=== PATIENT | male | born 1945 | race Caucasian/White ===

== ENCOUNTER → 2017-03-20 | Outpatient (CLI) | payer MEDICARE, BC | END | disposition home or self-care (01) | LOC: GMAB 14:30 | PROVIDERS: ATTEND Family Medicine | DX: Z12.5 Encounter for screening for malignant neoplasm of prostate (principal) ==

== ENCOUNTER → 2017-03-29 | Outpatient (CLI) | payer MEDICARE, BC ==
--- NOTE | 2017-03-31 11:57 | CT ---
EXAM DESCRIPTION: Chest w/o Contrast CLINICAL HISTORY: 71 years Male COUGH R05 COMPARISON: None TECHNIQUE: Noncontrast axial scans of the chest were obtained. Sagittal and coronal reformatted images were performed. The lack of intravenous contrast limits hilar and mediastinal evaluation. This exam was performed according to our departmental dose-optimization program, which includes automated exposure control, adjustment of the mA and/or kV according to patient size and/or use of iterative reconstruction technique. FINDINGS: The lungs are clear. There is no gross evidence of hilar or mediastinal mass or significant lymph node enlargement. A left subclavian transvenous pacemaker/defibrillator is present, along with atherosclerotic changes in the thoracic aorta and coronary artery calcifications. There is no evidence of thoracic aortic aneurysm, pleural effusion, or pneumothorax. Scattered slight degenerative changes are noted in the spine, along with anterior wedge compression deformity and lower endplate depression at T7, chronic in appearance. In the upper abdomen, there are noted vascular calcifications and cholecystectomy clips. A 1 cm ringlike calcification in the upper abdomen adjacent to the proximal duodenum could represent a duodenal diverticulum or potentially an old retained gallstone. Calcifications in the renal hilar areas are probably vascular. Probable small incidental cyst in the left kidney. There are metallic clips in the region of the gastroesophageal junction. IMPRESSION: No evidence of significant acute cardiopulmonary disease. Chronic appearing and incidental findings as described above. Electronically signed by: Jatin Sosa 03/31/2017 11:56 AM CHASSIS DRIVER
== END | disposition home or self-care (01) ==
LOC: CT 09:09
PROVIDERS: ATTEND Family Medicine
DX: R05 Cough (principal)

== ENCOUNTER → 2018-01-22 | Outpatient (CLI) | payer MEDICARE | LOC: GMAE 18:38 | PROVIDERS: ATTEND Family Medicine | DX: R10.13 Epigastric pain (principal) ==

== ENCOUNTER → 2018-01-23 | Outpatient (CLI) | payer MEDICARE, BC ==
--- NOTE | 2018-01-23 21:31 | CT ---
EXAM DESCRIPTION: Abdomen/Pelvis w/Contrast: Computed Tomography. CLINICAL HISTORY: EPIGASTRIC ABDOMINAL PAIN COMPARISON: None. TECHNIQUE: Spiral-axial scans at 5 x 5 mm intervals through the abdomen and pelvis, after nonionic IV contrast without oral contrast. Coronal and sagittal 2.0 mm reconstructions. Delayed scans, liver through the pelvis. Axial-spiral 5mm. No adverse reactions. Total Exam DLP: 496.52 mGy-cm. This exam was performed according to our departmental dose-optimization program which includes automated exposure control, adjustment of the mA and/or kV according to patient size and/or use of iterative reconstruction technique; to reduce radiation dose to as low as reasonably achievable (ALARA). FINDINGS: Lung bases and pleura: Lungs are unremarkable. Pacing wires in the heart. Liver, Stomach, Spleen, Adrenal Glands: Prominent xiphoid process impressing on the anterior capsule of the liver. Right lobe long axis measures 18.2 cm. No focal lesions or dilated ducts. Surgical clips around the gastroesophageal junction. Minimal distention of the stomach with gas and fluid. Distention of the duodenum by gas. Spleen and adrenal glands are unremarkable. Pancreas, Gallbladder, Ducts: A spherical shaped object, approximately 1 cm diameter, with calcified lima can be seen between the posterior head of the pancreas, inferior to the duodenum and posterior to the left lobe of the liver. Surgical clips in the gallbladder fossa with no fluid. Minimal dilation of the common bile duct. Remainder of the pancreas is unremarkable. Kidneys and Ureters: Centimeters cyst posterior inferior left kidney. Smaller cyst upper pole cortex. Mesentery: Minimal fascial thickening and fluid in the bilateral paracolic gutters and fascial. Also increased density of the bilateral pararenal fat. No free air.. Aorta: Moderate atherosclerotic calcification mid and distal segments with calcification of the ostia of the major branch vessels. Slight dilation of the distal segment above the bilateral calcified common iliac arteries. Small Bowel: Dilation of the jejunum by gas. Multiple segments contain fluid without distention. Fatty stranding and fluid abutting the left lower quadrant segments.. Terminal Ileum/Cecum: Contains radiodense material. Adjacent fatty stranding. Normal caliber of the appendix which contains radiodense material. Colon: Redundant sigmoid. No distention of the colon.. Pelvic Organs: Bladder distended with wall thickening. Prostate gland measures 5.4 x 4.3 cm transverse impresses on the base of the bladder, more to the left of midline. Spine and Bony Pelvis: Spondylosis L4-5 and grade 1 anterolisthesis with bilateral foraminal stenosis and canal nearly stenotic. Spondylosis also at L3-4 with bilateral foraminal narrowing. Minimal narrowing of the bilateral hip joints. Abdominal Wall/Back Soft Tissues: Negative. IMPRESSION: 1. Minimal ascites involving bilateral upper and lower quadrants. Hepatomegaly with no focal lesions. Small spleen. Prominent xiphoid process impresses on the anterior capsule of the left lobe of the liver. 2. Probable previous pancreatic pseudocyst with calcification of the cyst lima between the posterior pancreatic head and the transverse colon. Pancreas otherwise unremarkable. 3. Distention of the jejunum and duodenum by gas. Fluid-filled mid and distal small bowel. No obstruction. No air-fluid levels. No free air. 4. 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 Electronically signed by: Larry Bui MD 01/23/2018 9:29 PM CDT
== END ==
LOC: CT 10:04
PROVIDERS: ATTEND Family Medicine
DX: R10.13 Epigastric pain (principal); R18.8 Other ascites; M47.896 Other spondylosis, lumbar region

== ENCOUNTER 2018-03-27 05:47 | Day surgery (SDC) | payer MEDICARE ==
[2018-03-27] MEDS ORDERED: LACTATED RINGERS 1,000 ML ONE (06:03)
[2018-03-27] MEDS ORDERED: PROPOFOL 200 MG/20 ML VIAL IV ONE (07:00)
[2018-03-27] MEDS ORDERED: MIDAZOLAM INJ 5 MG/5 ML VIAL ONE (08:37)
--- NOTE | 2018-03-27 10:04 | OP ---
DATE OF PROCEDURE: 03/27/18 PREPROCEDURE DIAGNOSIS: 1. Abdominal pain. 2. History of polyps. POSTPROCEDURE DIAGNOSIS: 1. Thrush. 2. White/yellow esophageal plaques. 3. Increased resistance at the lower esophageal sphincter (LES). 4. Severe, congested/hyperemic gastropathy in the antrum, biopsied. 5. Normal duodenum. 6. Colonic polyp. 7. Suboptimal bowel preparation. PROCEDURE: 1. Esophagogastroduodenoscopy. 2. Colonoscopy SURGEON: Dev Sutton MD COMPLICATIONS: No immediate complications. SEDATION: The patient was sedated via IV propofol by the Anesthesia Department. CONSENT: Prior to the procedure, risks, benefits and alternatives to the therapy were discussed with the patient. The risks included bleeding, infection , perforation and . The patient agreed to the procedure and signed a consent. PREPROCEDURE ANESTHESIA ASSESSMENT: An examination revealed no contraindication to procedure, nor sedation. Airway examination demonstrated a Mallampati class type 2, ASA grade assessment type 2. Throughout the procedure , the patient's blood pressure and additional vital signs were closely monitored. PROCEDURE: The patient was placed in the left lateral decubitus position. Bite block was placed in the mouth between the teeth. The Olympus endoscope was introduced through the oropharynx, esophagus, stomach and the second portion of the duodenum. The scope was retracted and the mucosa visualized. The entirety of the exam was performed under direct visualization. Retroflexion was performed in the stomach. The patient tolerated the procedure well. After completing the upper endoscopy, the patient was left in left lateral decubitus position and turned around to proceed with colonoscopy. A rectal examination was performed. The rectal examination was within normal limits. The Olympus colonoscope was passed in the anus, rectum, traversing the colon to the level of the cecum as identified by the appendiceal orifice and the ileocecal valve. The scope was retracted and the mucosa was visualized. The entirety of the exam was performed under direct visualization. Retroflexion was performed in the rectum. Preparation quality was suboptimal and poor. The withdrawal time was greater than 6 minutes. The patient tolerated the procedure well. EGD FINDINGS: 1. White/yellow plaques were found throughout the oropharynx and the esophagus. Biopsies were obtained with cold forceps of the plaques in the esophagus to rule out mikael esophagitis. 2. Tortuous esophagus was found throughout the examination. Increased resistance at the LES 3. Moderate to severe erythematous, edematous, congested gastropathy was found predominantly in the gastric antrum. Biopsies were obtained with cold forceps. Copious amount of bile was seen in the gastric antrum and body, aspirated. Findings are highly suggestive of bile-induced gastropathy. 4. Normal duodenum. COLONOSCOPY FINDINGS: 1. Copious amount of liquid and semiliquid stool was found throughout the examination. A large amount of sterile water was utilized for lavage with only poor visualization of the colonic mucosa. 2. A 12 mm colonic polyp was found in the transverse colon. Hot snare was utilized for resection and complete retrieval. 3. Medium to large sized non-bleeding internal hemorrhoids were found in retroflexion. RECOMMENDATION: 1. Return the patient home. 2. Resume previous diet. 3. Start fluconazole 200 mg p.o. for 21 days. 4. Continue pantoprazole 40 mg p.o. daily. 5. Continue sucralfate p.r.n. for pain. 6. May start colestipol 1 gram p.o. b.i.d. and may increase dose if this provides any additional relief. 7. Followup pathology reports. 8. Repeat colonoscopy no later than one year or next available given suboptimal bowel preparation and large colonic polyp. 9. Return to my office in the following 1 to 2 weeks. 10. Return to referring provider's office as previously scheduled. 11. The findings were discussed with the patient and family members. #[id number] [facility]
[2018-03-27 13:48] VITALS: BP 128/75; TEMP 97.9; O2SAT 95
== END 2018-03-27 09:45 | disposition home or self-care (01) ==
LOC: AMB 05:47
PROVIDERS: ATTEND Internal Medicine Gastroenterology
DX: R10.9 Unspecified abdominal pain (principal); K31.9 Disease of stomach and duodenum, unspecified; B37.81 Candidal esophagitis; D12.3 Benign neoplasm of transverse colon; K64.8 Other hemorrhoids; I25.10 Atherosclerotic heart disease of native coronary artery without angina pectoris; I11.0 Hypertensive heart disease with heart failure; I50.9 Heart failure, unspecified; J44.9 Chronic obstructive pulmonary disease, unspecified; E11.51 Type 2 diabetes mellitus with diabetic peripheral angiopathy without gangrene; K59.00 Constipation, unspecified; E78.5 Hyperlipidemia, unspecified; F17.210 Nicotine dependence, cigarettes, uncomplicated; Z86.010 Personal history of colon polyps; Z95.0 Presence of cardiac pacemaker; Z92.21 Personal history of antineoplastic chemotherapy; Z92.3 Personal history of irradiation; Z85.21 Personal history of malignant neoplasm of larynx; Z79.82 Long term (current) use of aspirin; Z79.2 Long term (current) use of antibiotics; Z79.899 Other long term (current) drug therapy
CPT/HCPCS: 00813; 36416; 43239; 45385; 82948; 88305; J2250; J3490; J7120

== ENCOUNTER → 2018-10-29 | Outpatient (CLI) | payer MEDICARE ==
--- NOTE | 2018-10-30 09:02 | RAD ---
EXAM DESCRIPTION: Chest,2 Views CLINICAL HISTORY: HEART FAILURE COMPARISON: Previous chest x-ray May 09, 2016 TECHNIQUE: PA/lateral FINDINGS: Heart is large with prominent central pulmonary arteries. Cardiac pacer defibrillator is in place. No pleural effusion or pneumothorax. Minimal patchy infiltrate or volume loss in the left lung base is seen overlying the T-spine on the lateral view and lateral to the cardiac apex on the frontal view. Lungs are otherwise clear with no consolidating infiltrate. Lateral view shows intact sternum and T-spine. IMPRESSION: Minimal left basilar infiltrate or partial volume loss. Large heart without congestive failure. Electronically signed by: Xiang Malone MD 10/30/2018 9:00 AM CDT
== END ==
LOC: LAB.O 11:52
PROVIDERS: ATTEND Family Medicine
DX: I50.9 Heart failure, unspecified (principal); I51.7 Cardiomegaly

== ENCOUNTER → 2018-12-29 | Outpatient (CLI) | payer MEDICARE | LOC: YCFC.O 12:50 | PROVIDERS: ATTEND Family Medicine | DX: E78.5 Hyperlipidemia, unspecified (principal); D64.9 Anemia, unspecified; Z13.220 Encounter for screening for lipoid disorders ==

== ENCOUNTER → 2019-02-17 | Outpatient (CLI) | payer MEDICARE | LOC: LAB.O 11:22 | PROVIDERS: ATTEND Family Medicine | DX: I50.9 Heart failure, unspecified (principal) ==

== ENCOUNTER → 2019-06-09 | Outpatient (CLI) | payer MEDICARE ==
--- NOTE | 2019-06-10 08:58 | US ---
EXAM DESCRIPTION: Venous,Lower Extremity RT (accession [id number]), Venous,Lower Extremity LT (accession [id number]): Ultrasound. CLINICAL HISTORY: DVT COMPARISON: None Available. TECHNIQUE: Two -dimensional and doppler sonographic evaluation of the deep venous system of the bilateral lower extremities. FINDINGS: Doppler evaluation shows normal color flow and normal phasicity and augmentation of the bilateral common femoral veins, junctions with the bilateral proximal saphenous veins, femoral veins, popliteal veins, greater saphenous veins,, peroneal and posterior tibial veins. These veins showed normal occlusion with transducer pressure. Two-dimensional survey showed no echogenic clot within these veins. Bilateral lower extremity subcutaneous edema in the calves. IMPRESSION: Duplex ultrasound evaluation of the bilateral lower extremity deep venous systems showing no evidence of thrombosis. Bilateral lower extremity subcutaneous edema in the calves. Electronically signed by: Larry Bui MD 06/10/2019 8:56 AM SENIOR RADIATION THERAPIST
--- NOTE | 2019-06-10 08:58 | US ---
EXAM DESCRIPTION: Venous,Lower Extremity RT (accession [id number]), Venous,Lower Extremity LT (accession [id number]): Ultrasound. CLINICAL HISTORY: DVT COMPARISON: None Available. TECHNIQUE: Two -dimensional and doppler sonographic evaluation of the deep venous system of the bilateral lower extremities. FINDINGS: Doppler evaluation shows normal color flow and normal phasicity and augmentation of the bilateral common femoral veins, junctions with the bilateral proximal saphenous veins, femoral veins, popliteal veins, greater saphenous veins,, peroneal and posterior tibial veins. These veins showed normal occlusion with transducer pressure. Two-dimensional survey showed no echogenic clot within these veins. Bilateral lower extremity subcutaneous edema in the calves. IMPRESSION: Duplex ultrasound evaluation of the bilateral lower extremity deep venous systems showing no evidence of thrombosis. Bilateral lower extremity subcutaneous edema in the calves. Electronically signed by: Larry Bui MD 06/10/2019 8:56 AM MEDICAL LEADER
--- NOTE | 2019-06-10 11:26 | RAD ---
EXAM DESCRIPTION: Chest,2 Views CLINICAL HISTORY: 73 years Male, SHORTNESS OF BREATH COMPARISON: [facility] chest dated 10/29/2018. TECHNIQUE: PA and lateral radiographs of the chest were obtained. FINDINGS: Trachea is midline.The cardiomediastinal silhouette is enlarged in size. Bilateral pulmonary vascular congestion. Airspace opacities of the bilateral lower lobes represent atelectasis and/or pneumonia with possible small effusions. IMPRESSION: Enlarged cardiac silhouette with pulmonary vascular congestion. Airspace opacities of the bilateral lower lobes represent atelectasis and/or pneumonia with possible small effusions. Electronically signed by: Christin Baker MD 06/10/2019 11:24 AM COREMAKER
== END ==
LOC: LAB.O 12:57
PROVIDERS: ATTEND Internal Medicine Interventional Cardiology
DX: R06.02 Shortness of breath (principal); R91.8 Other nonspecific abnormal finding of lung field; I51.7 Cardiomegaly; R60.0 Localized edema

== ENCOUNTER → 2019-06-22 | Outpatient (CLI) | payer MEDICARE | LOC: LAB.O 14:37 | PROVIDERS: ATTEND Internal Medicine Interventional Cardiology | DX: I50.20 Unspecified systolic (congestive) heart failure (principal) ==

== ENCOUNTER → 2019-10-23 | Outpatient (CLI) | payer MEDICARE | LOC: YCFC.O 09:35 | PROVIDERS: ATTEND Family Medicine | DX: G89.4 Chronic pain syndrome (principal); K86.1 Other chronic pancreatitis; E11.9 Type 2 diabetes mellitus without complications; Z12.5 Encounter for screening for malignant neoplasm of prostate; E78.5 Hyperlipidemia, unspecified; R53.83 Other fatigue | CPT/HCPCS: 36415; 80053; 80061; 80307; 81001; 83036; 84443; 85025; 87077; 87086; 87186; G0103 ==

== ENCOUNTER → 2020-04-22 | Outpatient (CLI) | payer MEDICARE ==
--- NOTE | 2020-04-24 18:40 | CT ---
EXAM DESCRIPTION: Chest w/o Contrast CLINICAL HISTORY: 74 years, Male, RESTAGING NON SMALL CELL LUNG CANCER COMPARISON: Previous chest CT March 29, 2017, previous chest x-ray June 09, 2019 TECHNIQUE: Thin-section noncontrast axial CT images are obtained according to our protocol. Reconstructed MPR images are created and reviewed as well. FINDINGS: Lungs: There is a mass in the left upper lobe, in the medial aspect of the anterior segment which abuts the mediastinal pleura measuring 3.8 x 2.7 x 2.0 cm. On the sagittal images this area appears to lie just above the heart and may involve the upper pericardium. Spiculated margins are seen extending into the lungs. Findings are consistent with primary bronchogenic neoplasm. Subpleural linear scarring in the posterior right upper lobe cardiac pacer is in place. Mediastinum: Lymph nodes are normal in size. Normal vascular contours. Heart size is normal with no pericardial effusion. Extensive coronary arterial calcification. Chest wall/axilla: No mass or adenopathy. Prominent gynecomastia bilaterally. Lower neck/supraclavicular: No mass or adenopathy. Upper abdomen: See separate report for CT abdomen and pelvis. IMPRESSION: Left upper lobe mass abutting the mediastinum consistent with primary bronchogenic neoplasm 3.8 cm. This exam was performed according to our departmental dose-optimization program, which includes automated exposure control, adjustment of the mA and/or kV according to patient size and/or use of iterative reconstruction technique. Total DLP equals 1694.03 mGycm. Electronically signed by: Xiang Malone MD 04/24/2020 6:38 PM INSTRUCTIONAL MEDIA SERVICES TECHNICIAN
--- NOTE | 2020-04-24 18:49 | CT ---
EXAM DESCRIPTION: Abdoment/Pelvis w/o Contrast CLINICAL HISTORY: 74 years, Male, RESTAGING NON SMALL CELL LUNG CANCER COMPARISON: CT abdomen and pelvis January 23, 2018 TECHNIQUE: CT of the abdomen and pelvis is performed according to our non contrast protocol. FINDINGS: The lung bases are clear. Cardiac pacer in place. Heart size is normal. Liver, spleen, and pancreas are unremarkable. Gallbladder surgically absent. Adrenal glands appear normal. The right kidney is unremarkable except for tiny posterior mid renal hemorrhagic cyst 6 mm. Renal hilar calcifications are vascular. The left kidney contains a small hyperdense lesion laterally consistent with hemorrhagic cyst 1 cm. Left renal hilar calcifications are vascular. No renal stones or hydronephrosis. Strandy changes around the kidneys appear chronic. Small bowel loops appear normal in caliber with normal wall thickness. There is no lymphadenopathy, inflammation, or free fluid observed. No worrisome change compared to the previous study in January 2018. Ring calcification anterior to the pancreas could be loose gallstone remaining after cholecystectomy or could be rim calcified node. No vessel in the area to suggest calcified aneurysm. This is benign in appearance and unchanged. In the pelvis, the appendix is normal. No inflammation around the cecum or terminal ileum or sigmoid colon. No stones in the distal ureters or bladder. Rectal wall thickness is normal for degree of distention. No free fluid or mass in the pelvis. Prostate appears enlarged 5.6 cm in transverse dimension. Prostate appears enlarged on previous study as well. No inguinal or lower pelvic adenopathy. Coronal and sagittal reformatted images confirm the findings. Degenerative disc disease and lumbar spine with grade 2 anterolisthesis of L4 on L5 but no definite spondylolysis. IMPRESSION: Negative for evidence of metastatic disease in abdomen or pelvis. Large prostate. This exam was performed according to our departmental dose-optimization program, which includes automated exposure control, adjustment of the mA and/or kV according to patient size and/or use of iterative reconstruction technique. Total DLP equals 1694.03 mGycm. Electronically signed by: Xiang Malone MD 04/24/2020 6:48 PM SYSTEMS ANALYST ENGINEER
== END ==
LOC: CT 13:27
PROVIDERS: ATTEND Internal Medicine
DX: Z01.812 Encounter for preprocedural laboratory examination (principal); C34.12 Malignant neoplasm of upper lobe, left bronchus or lung; C23 Malignant neoplasm of gallbladder; N40.0 Benign prostatic hyperplasia without lower urinary tract symptoms; B33.0 Epidemic myalgia